=== PATIENT | female | born 1980 | race Two or more races ===

== ENCOUNTER 2017-09-30 05:03 | Emergency (ER) | payer MEDICAID ==
[~2017-09-30] VITALS: Ht 162.6 cm; Wt 65.8 kg
--- NOTE | 2017-09-30 06:06 | NUR ---
PT BB FROM HOME C/O OF THROBBING HEADACHE 10/10 X 2 DAYS. PT ALSO STATES TOOTH PAIN WITH LOOSE CROWN. PT STATES -N/V/D. -DIZZINESS. PT IS AAOX4. RESP EVEN AND UNLABORED. SKIN DRY AND WARM TO TOUCH. NO S/S OF DISTRESS NOTED. PT PLACED ON MONITOR AND POX. PT SAFETY AND COMFORT MEASURES IN PLACE. AWAITING MD FOR EVAL.
--- NOTE | 2017-09-30 06:10 | NUR ---
BEDSIDE FOR EVAL
[2017-09-30] MEDS ORDERED: HYDROMORPHONE INJ 2 MG/ML DISP.SYRIN ONE (06:26)
[2017-09-30] MEDS ORDERED: ONDANSETRON HCL/PF 4 MG/2 ML VIAL ONE (06:26)
[2017-09-30 06:30] LABS: BASOPHILS % (AUTO) 0.6 % (0.0-2.0); EOSINOPHILS % (AUTO) 0.8 % (0.0-6.0); HEMATOCRIT 34 % (33-45); HEMOGLOBIN 11.5 g/dL (11.5-14.8); LYMPHOCYTES % (AUTO) 27.5 % (20.0-44.0); MEAN CORPUSCULAR HGB CONC 34 g/dl (31.0-36.0); MEAN CORPUSCULAR VOLUME 92 fL (82-100); MONOCYTES # (AUTO) 0.4 /CMM (0.1-1.30); MONOCYTES % (AUTO) 6.3 % (2.0-12.0); NEUTROPHILS # (AUTO) 4.6 /CMM (1.8-8.9); NEUTROPHILS % (AUTO) 64.8 % (43.0-81.0); PLATELET COUNT (AUTO) 242 /CMM (150-450); RDW COEFFICIENT OF VARIATION 13.8 (11.5-15.0); RED BLOOD CELL COUNT(AUTO) 3.65 MIL/uL (4.0-5.2); WHITE BLOOD COUNT (AUTO) 7.1 K/uL (4.3-11.0)
[2017-09-30] MEDS ORDERED: ONDANSETRON HCL/PF 4 MG/2 ML VIAL IVP ONE (06:30)
[2017-09-30] MEDS ORDERED: IV NS 0.9% 1,000 ML BAG IV ONE (06:30)
[2017-09-30] MEDS ORDERED: HYDROMORPHONE INJ 2 MG/ML DISP.SYRIN IV ONE (06:30)
[2017-09-30 06:39] LABS: CALCIUM, SERUM 8.7 mg/dL (8.5-10.1); CREATININE 0.6 mg/dL (0.6-1.3); POTASSIUM 4.2 mmol/L (3.5-5.1)
--- NOTE | 2017-09-30 06:49 | NUR ---
PT TO RESTROOM TO GIVE URINE SAMPLE.
--- NOTE | 2017-09-30 06:58 | NUR ---
URINE SAMPLE SENT TO LAB
--- NOTE | 2017-09-30 07:25 | NUR ---
REPORT GIVEN TO LONNY PILLAI FOR KAREY.
--- NOTE | 2017-09-30 07:26 | NUR ---
RECEIVED REPORT FOR KAREY.
[2017-09-30 07:34] LABS: PROTEIN,URINE TRACE mg/dl (NEGATIVE)
[2017-09-30 07:35] LABS: KETONES,URINE NEGATIVE (NEGATIVE); UGLUCOSE NEGATIVE (NEGATIVE)
[2017-09-30 07:36] LABS: BLOOD, URINE 3+ Ery/uL (NEGATIVE); LEUKOCYTE ESTERASE ,URINE NEGATIVE (NEGATIVE); NITRITE, URINE NEGATIVE (NEGATIVE); UROBILINOGEN,URINE 0.2 EU/dL (0.2)
[2017-09-30 07:37] LABS: BILIRUBIN,URINE NEGATIVE (NEGATIVE)
[2017-09-30 07:39] LABS: APPEARANCE,URINE CLOUDY (CLEAR); COLOR,URINE DARK YELLOW (YELLOW)
[2017-09-30 07:40] LABS: RBC,URINE 21-50 /HPF (0-2); SQUAMOUS EPITHELIAL CELL,UR Few /HPF (None Seen); WBC,URINE 0-2 /HPF (0-3)
[2017-09-30 07:41] LABS: BACTERIA,URINE Moderate /HPF (None Seen)
[2017-09-30 08:06] VITALS: BP 126/74
--- NOTE | 2017-09-30 08:08 | NUR ---
IV removed. Catheter intact and site benign. Pressure and 4x4 applied to site. No bleeding noted. Patient discharged to home in stable condition. Written and verbal after care instructions given. Patient verbalizes understanding of instruction.
== END 2017-09-30 08:07 | disposition home or self-care (01) ==
LOC: ER 05:03
DX: R51 Headache (principal); R82.79 Other abnormal findings on microbiological examination of urine
CPT/HCPCS: 36415; 80048; 81001; 84703; 85025; 87086; 96361; 96374; 96375; 99284; A4606; J1170; J2405; J7030; Z7610; 81000-TC

== ENCOUNTER 2021-02-20 21:26 | Emergency (ER) | payer MEDICAID, OTHER ==
[~2021-02-20] VITALS: Ht 157.5 cm; Wt 80.7 kg
[2021-02-20 22:29] VITALS: BP 171/88
[2021-02-20 23:00] LABS: BASOPHILS % (AUTO) 0.7 % (0.0-2.0); EOSINOPHILS % (AUTO) 0.9 % (0.0-6.0); HEMATOCRIT 38 % (33-45); HEMOGLOBIN 12.8 g/dL (11.5-14.8); LYMPHOCYTES # (AUTO) 2.4 K/uL (0.8-4.8); LYMPHOCYTES % (AUTO) 32.4 % (20.0-44.0); MEAN CORPUSCULAR HGB CONC 34 g/dl (31.0-36.0); MEAN CORPUSCULAR VOLUME 95 fL (82-100); MONOCYTES # (AUTO) 0.5 K/uL (0.1-1.30); NEUTROPHILS # (AUTO) 4.5 K/uL (1.8-8.9); PLATELET COUNT (AUTO) 222 K/uL (150-450); RED BLOOD CELL COUNT(AUTO) 3.99 MIL/uL (4.0-5.2); WHITE BLOOD COUNT (AUTO) 7.5 K/uL (4.3-11.0)
--- NOTE | 2021-02-20 23:12 | NUR ---
RADIOLOGY AT BEDSIDE FOR XRAY
[2021-02-20 23:13] LABS: ALBUMIN 4.4 g/dL (3.4-5.0); BILIRUBIN,TOTAL 0.3 mg/dL (0.2-1.0); CALCIUM, SERUM 10.1 mg/dL (8.5-10.1); CREATININE 0.6 mg/dL (0.6-1.3); POTASSIUM 4.5 mmol/L (3.5-5.1); TOTAL PROTEIN, SERUM 8.4 g/dL (6.4-8.2)
--- NOTE | 2021-02-20 23:13 | NUR ---
SPOKE TO PT REGARDING URINE SAMPLE, STATED SHE WILL TRY AGAIN
--- NOTE | 2021-02-20 23:36 | NUR ---
URINE COLLECTED SENT TO LAB.
[2021-02-20 23:39] LABS: BILIRUBIN,URINE Negative (NEGATIVE); COLOR,URINE YELLOW (YELLOW); LEUKOCYTE ESTERASE ,URINE Negative (NEGATIVE); NITRITE, URINE Negative (NEGATIVE); PROTEIN,URINE Negative (NEGATIVE); UGLUCOSE Negative (NEGATIVE); UROBILINOGEN,URINE 0.2 EU/dL (0.2)
--- NOTE | 2021-02-21 00:37 | NUR ---
Patient discharged to home in stable condition. Written and verbal after care instructions given. Patient verbalizes understanding of instruction. Pt ambulated out of ED. VSS.
== END 2021-02-21 00:38 | disposition home or self-care (01) ==
LOC: ER 21:30
DX: S22.32XA Fracture of one rib, left side, initial encounter for closed fracture (principal); N83.209 Unspecified ovarian cyst, unspecified side; Z98.890 Other specified postprocedural states; F17.200 Nicotine dependence, unspecified, uncomplicated; X58.XXXA Exposure to other specified factors, initial encounter; Y93.89 Activity, other specified; Y92.89 Other specified places as the place of occurrence of the external cause; Y99.8 Other external cause status
CPT/HCPCS: 36415; 71045-TC; 80053-TC; 85025-TC